=== PATIENT | female | born 1980 | race Asian ===

== ENCOUNTER 2017-11-22 10:39 | Inpatient (IN) | payer SELFPAY ==
[~2017-11-22] VITALS: Ht 165.1 cm; Wt 65.3 kg
[2017-11-25] MEDS ORDERED: LACTATED RINGERS 1,000 ML IV SCH (00:51)
[2017-11-25] MEDS ORDERED: FERR-252 PO (00:51)
[2017-11-25] MEDS ORDERED: PREN1SGL25 PO (00:51)
[2017-11-25] MEDS ORDERED: MISOPROSTOL 25 MCG TAB VG PRN (00:55)
[2017-11-25] MEDS ORDERED: PROMETHAZINE 25 MG/ML VIAL IVP PRN (00:55)
[2017-11-25] MEDS ORDERED: METHYLERGONOVINE 0.2 MG/ML AMP IM PRN ×2 (00:55→18:00)
[2017-11-25] MEDS ORDERED: NALBUPHINE HYDROCHLORIDE 10 MG/ML VIAL IVP PRN (00:55)
[2017-11-25] MEDS ORDERED: OXYTOCIN 10 UNITS/ML VIAL IM SCH (00:55)
[2017-11-25] MEDS ORDERED: CARBOPROST 250 MCG/ML AMP IM PRN (00:55)
[2017-11-25] MEDS ORDERED: MISOPROSTOL 25 MCG TAB ONE (01:59)
[2017-11-25 02:24] LABS: BASOPHILS # (AUTO) 0.1 K/uL (0.00-0.22); BASOPHILS % (AUTO) 1.4 % (0.0-2.0); EOSINOPHILS # (AUTO) 0.1 K/uL (0-0.4); EOSINOPHILS % (AUTO) 1.4 % (0.0-4.0); HEMATOCRIT 35.1 % (36-48); HEMOGLOBIN 11.2 g/dL (12.0-16.0); LYMPHOCYTES # (AUTO) 1.3 K/uL (2.5-16.5); LYMPHOCYTES % (AUTO) 19.5 % (20.5-51.1); MEAN CORPUSCULAR HEMOGLOBIN 28 pg (27-31); MEAN CORPUSCULAR HGB CONC 32 g/dL (33-37); MEAN CORPUSCULAR VOLUME 89 fL (80-94); MONOCYTES # (AUTO) 0.5 K/uL (0.8-1.0); MONOCYTES % (AUTO) 8.1 % (1.7-9.3); NEUTROPHILS # (AUTO) 4.7 K/uL (1.8-7.7); NEUTROPHILS % (AUTO) 69.6 % (42.2-75.2); PLATELET COUNT (AUTO) 214 K/uL (140-450); RED BLOOD CELL COUNT(AUTO) 3.97 MIL/uL (4.20-5.40); RED CELL DISTRIBUTION WIDTH 18.6 % (11.6-13.7); WHITE BLOOD COUNT (AUTO) 6.7 K/uL (4.8-10.8)
[2017-11-25 02:27] VITALS: BP 115/67
[2017-11-25 02:38] LABS: ANION GAP 15.3 (8-16); CARBON DIOXIDE 22.5 mmol/L (21-32); CREATININE 0.4 mg/dL (0.6-1.3); POTASSIUM 3.8 mmol/L (3.5-5.1)
[2017-11-25 02:44] LABS: ALBUMIN 2.9 g/dL (3.4-5.0); TOTAL BILIRUBIN 0.2 mg/dL (0.0-1.0)
[2017-11-25 03:12] LABS: APPEARANCE,URINE CLEAR (CLEAR); BILIRUBIN,URINE NEGATIVE (NEGATIVE); BLOOD, URINE NEGATIVE (NEGATIVE); COLOR,URINE YELLOW (YELLOW); LEUKOCYTE ESTERASE ,URINE NEGATIVE (NEGATIVE); NITRITE, URINE NEGATIVE (NEGATIVE); UGLUCOSE NEGATIVE (NEGATIVE)
[2017-11-25] MEDS ORDERED: OXYTOCIN 20 UNITS/LR PREMIX 1,000 ML IV ONE (07:38)
[2017-11-25] MEDS ORDERED: BUPIVACAINE 0.125%/NS PREMIX 250 ML ONE (12:22)
--- NOTE | 2017-11-25 12:45 | NUR ---
PATIENT HAS BEEN SCREENED AND CATEGORIZED LOW NUTRITION RISK. PT WILL BE SEEN WITHIN 7 DAYS OF ADMISSION. 12/01/[address]
[2017-11-25] MEDS ORDERED: HYDROcodone/APAP 5/325 MG 1 TAB TAB PO PRN (18:00)
[2017-11-25] MEDS ORDERED: TEMAZEPAM 15 MG CAP PO PRN (18:00)
[2017-11-25] MEDS ORDERED: BENZOCAINE/MENTHOL 20%-0.5% 60 GM CAN TP PRN (18:00)
[2017-11-25] MEDS ORDERED: MEASLES, MUMPS, AND RUBELLA 1 VIAL SQVAC PRN (18:00)
[2017-11-25] MEDS ORDERED: OXYTOCIN 10 UNITS/ML VIAL IM PRN (18:00)
[2017-11-25] MEDS ORDERED: IBUPROFEN 800 MG TAB PO PRN (18:00)
[2017-11-25] MEDS ORDERED: oxyCODONE/APAP 5/325 MG 1 TAB TAB PO PRN (18:00)
[2017-11-25] MEDS ORDERED: DOCUSATE SOD/SENNA 50/8.6 MG 1 TAB PO SCH (21:00)
[2017-11-26] MEDS ORDERED: INFLUENZA VIRUS VACCINE QUAD 0.5 ML SYR IMVAC SCH (05:00)
[2017-11-26] MEDS ORDERED: INFLUENZA VIRUS VACCINE QUAD 0.5 ML SYR IMVAC ONE (06:46)
[2017-11-26 06:47] LABS: HEMATOCRIT 32.7 % (36-48); HEMOGLOBIN 10.7 g/dL (12.0-16.0)
[2017-11-26] MEDS ORDERED: HYDROcodone/APAP 5/325 MG 1 TAB TAB ONE (12:31)
[2017-11-26] MEDS ORDERED: IBUPROFEN 400 MG TAB ONE (20:03)
[2017-11-27] MEDS ORDERED: INFLUENZA VIRUS VACCINE QUAD 0.5 ML SYR IMVAC SCH (09:00)
[2017-11-27] MEDS ORDERED: IBUP-1801 PO (09:24)
== END 2017-11-27 13:15 | disposition home or self-care (01) | DRG 775 ==
LOC: MLD 11-25 00:01 → MFCC 11-25 22:38
PROVIDERS: ADMIT Obstetrics & Gynecology; ATTEND Obstetrics & Gynecology
PROC: 10D07Z6 Extraction of Products of Conception, Vacuum, Via Natural or Artificial Opening (ICD-10-PCS; principal; 2017-11-25)
PROC: 10907ZC Drainage of Amniotic Fluid, Therapeutic from Products of Conception, Via Natural or Artificial Opening (ICD-10-PCS; 2017-11-25)
PROC: 3E0P7VZ Introduction of Hormone into Female Reproductive, Via Natural or Artificial Opening (ICD-10-PCS; 2017-11-25)
PROC: 0W8NXZZ Division of Female Perineum, External Approach (ICD-10-PCS; 2017-11-25)
PROC: 00HU33Z Insertion of Infusion Device into Spinal Canal, Percutaneous Approach (ICD-10-PCS; 2017-11-25)
PROC: 3E0R3BZ Introduction of Anesthetic Agent into Spinal Canal, Percutaneous Approach (ICD-10-PCS; 2017-11-25)
PROC: 3E0234Z Introduction of Serum, Toxoid and Vaccine into Muscle, Percutaneous Approach (ICD-10-PCS; 2017-11-26)
PROC: 3E0234Z Introduction of Serum, Toxoid and Vaccine into Muscle, Percutaneous Approach (ICD-10-PCS; 2017-11-26)
DX: O80 Encounter for full-term uncomplicated delivery (principal); Z23 Encounter for immunization; Z37.0 Single live birth; Z3A.39 39 weeks gestation of pregnancy
CPT/HCPCS: 36415; 51702; 59409; 80053; 81003; 85018; 85025; 86592; 86886; 86900; 86901; 90658; 90715; J2590; J3490; J7120